=== PATIENT | female | born 1985 | race African-American/Black ===

== ENCOUNTER 2016-09-10 14:08 | Emergency (ER) | payer OTHER ==
[~2016-09-10] VITALS: Ht 162.6 cm; Wt 92.5 kg
--- NOTE | ~2016-09-10 | EKG ---
[address] [place] [place] [address] ELECTROCARDIOGRAM REPORT Name: TANVI MARQUEZ [facility] Room #: PRE JuvenalRHans#: [id number] Admission: Attend Phys: Discharge: Date of : 85 Report #: [id number] THIS REPORT FOR: //name// [facility] ED Test Date: 2016-09-10 Test Time: 14:34:03 Pat Name: TANVI MARQUEZ Department: Room: Gender: F Sales Order Administrator: GEORGI : 1985 Requested By: Fredo Borja Order Number: [id number] MD: Jim Resendez Measurements Intervals [place] Rate: 60 P: 22 MT: 137 QRS: 58 QRSD: 84 T: 34 QT: 394 QTc: 394 Interpretive Statements Sinus rhythm No previous ECG available for comparison Electronically Signed On 09-10-2016 15:59:23 CDT by Jim Resendez [email or web address] <ELECTRONICALLY SIGNED> By: Jim Resendez MD 09/10/16 1559 1434 1434 Jim Resendez MD /EPI
[2016-09-10 15:59] LABS: URINE BILIRUBIN NEGATIVE (Negative); URINE BLOOD NEGATIVE (Negative); URINE COLOR YELLOW; URINE GLUCOSE-RANDOM* NEGATIVE (Negative); URINE KETONES NEGATIVE (Negative); URINE LEUKOCYTES-REFLEX NEGATIVE (Negative); URINE PROTEIN (DIPSTICK) NEGATIVE (Negative); URINE SPECIFIC GRAVITY 1.025 (1.003-1.035)
[2016-09-10 16:44] LABS: ABSOLUTE NEUTROPHILS 5.7 thou/uL (1.4-8.2); BASOPHILS 0.8 % (0.0-2.0); EOSINOPHILS 1.5 % (0.0-3.0); HEMATOCRIT 34.9 % (37.0-47.0); HEMOGLOBIN 11.7 gm/dL (12.0-15.0); LYMPHOCYTES 28.8 % (24.0-44.0); MCH 31.3 pg (26.0-34.0); MCHC 33.6 g/dL (28.0-37.0); MCV 93.1 fL (80.0-100.0); MONOCYTES 7.4 % (1.0-8.0); PLATELET COUNT 145 thou/uL (150-400); POLYS 61.5 % (36.0-66.0); RBC 3.75 mil/uL (4.20-5.00); RDW 13.5 % (10.5-14.5); WBC 9.3 thou/uL (4.0-11.0)
[2016-09-10 16:48] LABS: MANUAL DIFF NO
[2016-09-10 16:49] LABS: ANION GAP 9 mmol/L (7-16); BUN 7 mg/dL (7-18); CHLORIDE 105 mmol/L (98-107); CO2 25 mmol/L (21-32); CREATININE 0.6 mg/dL (0.6-1.0); GLUCOSE 75 mg/dL (74-106); POTASSIUM 3.9 mmol/L (3.5-5.1); SODIUM 139 mmol/L (136-145)
[2016-09-10 16:56] LABS: ALBUMIN 3.6 g/dL (3.4-5.0); ALKALINE PHOSPHATASE 35 U/L (46-116); SGOT 12 U/L (15-37); SGPT 14 U/L (30-65); TOTAL BILIRUBIN 0.4 mg/dL (<0.1-1.0); TOTAL PROTEIN 6.9 g/dL (6.4-8.2); TROPONIN-I < 0.04 ng/mL (<0.04-0.07)
[2016-09-10] MEDS ORDERED: TRINATE TABLET1 TAB PO (18:39)
[2016-09-10 18:52] VITALS: BP 128/81
[2016-09-11 18:06] LABS: CHLAMYDIA TRACHOMATIS-PCR Negative (Negative); NEISSERIA GONORRHEA-PCR Negative (Negative)
== END 2016-09-10 18:53 | disposition home or self-care (01) ==
LOC: ER 14:08
PROVIDERS: Physician Assistant
DX: O23.511 Infections of cervix in pregnancy, first trimester (principal); O34.81 Maternal care for other abnormalities of pelvic organs, first trimester; Z3A.01 Less than 8 weeks gestation of pregnancy; J45.909 Unspecified asthma, uncomplicated; Z88.1 Allergy status to other antibiotic agents